=== PATIENT | female | born 1965 | race Asian ===

== ENCOUNTER → 2017-11-12 15:52 | Outpatient (CLI) | payer BC, SELFPAY ==
--- NOTE | 2017-11-12 16:00 | MM_ITS ---
. MM Dig screening mamm BI w/CAD CAD Screening ORDERING PHYSICIAN : Mor Pike MD PATIENT AGE: 52 years GENDER: Female COMPARISON: Previous mammograms: August 2015, October 2013. April 2011 INDICATION: Routine screening no hormones no new complaints noncontributory family history. TECHNIQUE: Standard CC and MLO images were obtained. R2 CAD reviewed. FINDINGS: Scattered moderate fibroglandular elements with moderately dense breast.. Slight progressive minimal fatty replacement over since since 2013 and particularly evident since 2010 No significant new findings no dominant mass nor suspicious calcifications. Bilateral follow-up in one year recommended. IMPRESSION: Negative Stable bilateral mammogram No new areas of significant concern in this breast of moderate density Follow up one year BI-RADS Category: 1 Negative RECOMMENDED FOLLOW-UP: 1YR - 1 YEAR FOLLOW-UP (A letter has been sent to the patient regarding results of the study.)
== END ==
PROVIDERS: Family Provider Family Medicine; PCP Family Medicine; Visit Provider Family Medicine
DX: Z12.31 Encounter for screening mammogram for malignant neoplasm of breast (principal)
CPT/HCPCS: 77067

== ENCOUNTER → 2018-09-11 12:44 | Outpatient (CLI) | payer BC, SELFPAY ==
[2018-09-11 20:44] LABS: Alanine Aminotransferase 87 U/L (12-78); Albumin Level 4.2 gm/dL (3.4-5.0); Albumin/Globulin Ratio 0.8 (1.1-1.8); Alkaline Phosphatase 140 U/L (46-116); Anion Gap 14.9 mEq/L (5-15); Aspartate Amino Transferase 48 U/L (15-37); Bilirubin,Total 0.4 mg/dL (0.2-1.0); Blood Urea Nitrogen 21 mg/dL (7-18); Calcium 10.1 mg/dL (8.5-10.1); Carbon Dioxide 28 mmol/L (21.0-32.0); Chloride 105 mmol/L (98-107); Chol/HDL Ratio 4.1 (1-3.5); Cholesterol 224 mg/dL (140-200); Creatinine,Serum 0.58 mg/dL (0.55-1.02); Estimated Glomerular Filt Rate 110 ml/min (>60); GFR (African American) 133 ML/MIN (>60); Glucose 118 mg/dL (74-106); HDL Cholesterol 55 mg/dL (29-89); LDL Cholesterol 141 mg/dL (0-130); Potassium 4.9 mmoL/L (3.5-5.1); Sodium 143 mmol/L (136-145); Thyroid Stimulating Hormone 2.19 uIU/ml (0.358-3.740); Total Protein,Serum 9.2 gm/dL (6.4-8.2); Triglycerides 142 mg/dL (30-200); VLDL Cholesterol 28 mg/dL (0-40)
== END ==
PROVIDERS: Visit Provider Physician Assistant
DX: I10 Essential (primary) hypertension (principal); Z13.29 Encounter for screening for other suspected endocrine disorder; Z13.220 Encounter for screening for lipoid disorders
CPT/HCPCS: 36415; 80053; 80061; 84443

== ENCOUNTER → 2018-09-26 12:12 | Outpatient (CLI) | payer BC, SELFPAY ==
[2018-09-26 13:33] LABS: Glucose,Fasting 113 mg/dL (60-105)
[2018-09-26 14:36] LABS: Hemoglobin A1C 6.4 % (0.0-7.0)
[2018-09-27 07:14] LABS: Hep A Ab, IgM Negative (Negative); Hepatitis B Core Antibody IgM Negative (Negative); Hepatitis B Surface Antigen Negative (Negative)
[2018-09-27 09:05] LABS: Hepatitis C Antibody <0.1 s/co ratio (0.0-0.9)
== END ==
PROVIDERS: Visit Provider Physician Assistant
DX: R94.5 Abnormal results of liver function studies (principal); R73.01 Impaired fasting glucose
CPT/HCPCS: 36415; 80074; 82947; 83036

== ENCOUNTER → 2018-10-01 08:13 | Outpatient (CLI) | payer BC, SELFPAY ==
--- NOTE | 2018-10-01 08:19 | US_ITS ---
US abdomen limited History:Elevated liver enzymes Ordering Physician:SOBIA Navas Patient Age: 53 years Comparison:None Findings: Pancreas:Unremarkable. No obvious mass or abnormal fluid collection. No ductal dilatation Liver:There is appropriate direction of blood flow within a normal size portal vein. No focal liver lesions or biliary dilatation evident. Right Kidney:Unremarkable. Normal size and echogenicity. No hydronephrosis Gallbladder:No gallstones, gallbladder wall thickening, pericholecystic fluid, or biliary dilatation. Impression:Negative gallbladder/right upper quadrant ultrasound
== END ==
PROVIDERS: PCP Family Medicine; Visit Provider Physician Assistant
DX: R94.5 Abnormal results of liver function studies (principal)
CPT/HCPCS: 76705

== ENCOUNTER → 2020-02-04 07:48 | Outpatient (CLI) | payer BC, SELFPAY ==
--- NOTE | 2020-02-04 07:55 | MM_ITS ---
PROCEDURE: MM DIG SCREENING MAMM BI W/CAD DIGITAL BREAST TOMOSYNTHESIS INCLUDED Patient Age:54Y CLINICAL INDICATION: Routine Screening No Hormones. No New Complaints. Noncontributory Family History. COMPARISON: [facility] DIG MAMM-SCREEN PAKO from 10/14/2013 [facility] DIG MAMM-SCREEN PAKO from 08/31/2015 [facility] MM Dig screening mamm BI w/CAD from 11/12/2017 TECHNIQUE: Standard CC and MLO images were obtained. R2 CAD reviewed. Bilateral digital breast tomosynthesis included. FINDINGS: Moderate density breast but no new areas of significant concern. Gradual progressive fatty changes when compared back to multiple studies over the past several years.. Cad Highlights No Areas Of Concern. Visual Review Of Images Shows No New Or Suspicious Dominant Mass But No Suspicious Calcifications Identified Bilateral follow-up 1 year recommended IMPRESSION: Stable bilateral mammogram. NO NEW AREAS OF CONCERN Annual bilateral follow-up recommended BI-RAD Category: 1 Negative FOLLOW-UP: 1YR 1 Year Follow-up (A letter has been sent to the patient regarding results of the study.) Dictated by: Jeffry Parson MD 02/10/2020 21:48 Electronically signed by Jeffry Parson MD in [place] 02/10/2020 21:48
== END ==
PROVIDERS: PCP Physician Assistant; Visit Provider Physician Assistant
DX: Z12.31 Encounter for screening mammogram for malignant neoplasm of breast (principal)
CPT/HCPCS: 77063; 77067

== ENCOUNTER → 2020-11-03 12:08 | Outpatient (CLI) | payer BC, SELFPAY ==
[2020-11-03 13:15] LABS: Alanine Aminotransferase 42 U/L (12-78); Albumin Level 4.8 g/dl (3.5-5.0); Albumin/Globulin Ratio 1.3 (1.1-1.8); Alkaline Phosphatase 108 U/L (38-126); Anion Gap 13.3 mEq/L (5-15); Aspartate Amino Transferase 36 U/L (14-36); Bilirubin,Total 0.4 mg/dl (0.2-1.3); Blood Urea Nitrogen 17 mg/dl (7-17); Calcium 9.9 mg/dl (8.4-10.2); Carbon Dioxide 25 mmol/L (22.0-30.0); Chloride 108 mmol/L (98-107); Cholesterol 181 mg/dl (140-200); Estimated Glomerular Filt Rate 105 ml/min (>60); GFR (African American) 127 ML/MIN (>60); Globulin 3.8 g/dL (1.3-3.2); Glucose 119 mg/dl (74-100); HDL Cholesterol 45 mg/dl (40-60); Potassium 4.3 mmoL/L (3.5-5.1); Sodium 142 mmol/L (136-145); Total Protein,Serum 8.6 g/dl (6.3-8.2); Triglycerides 209 mg/dl (30-150); VLDL Cholesterol 42 mg/dL (0-40)
[2020-11-03 13:26] LABS: Direct LDL Cholesterol 83.96 mg/dL (100-129)
[2020-11-03 14:50] LABS: Hemoglobin A1C 6.3 % (4.0-6.0)
== END ==
PROVIDERS: Visit Provider Physician Assistant
DX: I10 Essential (primary) hypertension (principal); R73.01 Impaired fasting glucose; E78.2 Mixed hyperlipidemia
CPT/HCPCS: 36415; 80053; 80061; 83036

== ENCOUNTER 2020-12-11 23:35 | Observation (INO) | payer BC, SELFPAY ==
--- NOTE | 2020-12-11 23:30 | ECG_ITS ---
APPROVED REPORT Exam: Resting ECG HR:80 bpm ECG Measurements Heart Rate 80 AXES RI 156 P 51 QRSd 76 QRS 31 QT 382 T 28 QTc 440 Conclusion Normal sinus rhythm Nonspecific T wave abnormality Abnormal ECG Electronically signed by : Naun Sanchez, 12/12/2020 07:09:25
[2020-12-11 23:41] VITALS: BP 130/90; PULSE 81; RESP 18; TEMP 36.9; O2SAT 100; BMI 27.6
--- NOTE | 2020-12-11 23:44 | XR_ITS ---
PROCEDURE INFORMATION: Exam: XR Chest Exam date and time: 12/11/2020 11:44 PM Age: 55 years old Clinical indication: Patient HX: Syncope, left arm numbness TECHNIQUE: Imaging protocol: XR of the chest. Views: 1 view. Total images: 1 COMPARISON: CR XR CHEST 2V 06/30/2019 4:44 PM FINDINGS: Lungs: Patchy nonspecific right lung base opacities favor atelectasis. Left perihilar metallic densities are nonspecific, not convincing of endobronchial valves and possibly external to the patient. Pleural spaces: Unremarkable. No pleural effusion. No pneumothorax. Heart/Mediastinum: Unremarkable. No cardiomegaly. Bones/joints: Unremarkable. IMPRESSION: 1. Patchy nonspecific right lung base opacities favor atelectasis. 2. Left perihilar metallic densities are nonspecific, not convincing of endobronchial valves and possibly external to the patient. Recommend clinical correlation.
--- NOTE | 2020-12-11 23:44 | CT_ITS ---
PROCEDURE INFORMATION: Exam: CT Head Without Contrast Exam date and time: 12/11/2020 11:44 PM Age: 55 years old Clinical indication: Numbness / parasthesia and syncope and collapse; Patient HX: Syncope with left arm numbness, headache; Additional info: Syncope and facial numbness TECHNIQUE: Imaging protocol: Computed tomography of the head without contrast. Total images: 83 Radiation optimization: All CT scans at this facility use at least one of these dose optimization techniques: automated exposure control; mA and/or kV adjustment per patient size (includes targeted exams where dose is matched to clinical indication); or iterative reconstruction. COMPARISON: No relevant prior studies available. FINDINGS: Brain: Normal. No hemorrhage. Unremarkable white matter. No mass effect. Cerebral ventricles: No ventriculomegaly. Paranasal sinuses: Visualized sinuses are unremarkable. No fluid levels. Mastoid air cells: Visualized mastoid air cells are well aerated. Bones/joints: Unremarkable. No acute fracture. Soft tissues: Unremarkable. IMPRESSION: No acute intracranial abnormality.
[2020-12-11 23:47] VITALS: BMI 27.6
[2020-12-11 23:56] LABS: Alanine Aminotransferase 68 U/L (12-78); Albumin Level 4.3 g/dl (3.5-5.0); Albumin/Globulin Ratio 1.1 (1.1-1.8); Alkaline Phosphatase 136 U/L (38-126); Anion Gap 6.6 mEq/L (5-15); Aspartate Amino Transferase 48 U/L (14-36); Bilirubin,Total 0.7 mg/dl (0.2-1.3); Blood Urea Nitrogen 16 mg/dl (7-17); Carbon Dioxide 37 mmol/L (22.0-30.0); Chloride 101 mmol/L (98-107); Creatinine Clearance Estimated 73 mL/min (50-200); Estimated Glomerular Filt Rate 58 ml/min (>60); GFR (African American) 70 ML/MIN (>60); Glucose 117 mg/dl (74-100); Potassium 3.6 mmoL/L (3.5-5.1); Sodium 141 mmol/L (136-145); Total Protein,Serum 8.3 g/dl (6.3-8.2)
[2020-12-12] VITALS (12 sets, daily range): BP systolic 129–154; BP diastolic 74–92; PULSE 78–114; RESP 16–19; TEMP 36.6–37.2; O2SAT 97–100; BMI 27.5
[2020-12-12 00:08] LABS: INR 0.82 (0.9-1.1); Prothrombin Time 9.8 seconds (10.1-12.5)
[2020-12-12 00:08] LABS: Troponin I 0.02 ng/ml (0.00-0.034)
[2020-12-12 00:11] LABS: Basophils # 0.1 K/mm3 (0-0.2); Basophils % 0.8 % (0.1-2.0); Eosinophils # 0.1 K/mm3 (0.0-0.4); Eosinophils % 1.2 % (0.1-12.0); Hematocrit 24.5 % (37.0-47.0); Hemoglobin 8.5 g/dL (12.2-16.2); Lymphocytes # 4.4 K/mm3 (0.7-4.5); Lymphocytes % 60.3 % (10-50); Mean Corpuscular HGB Conc 34.8 g/dL (31.8-35.4); Mean Corpuscular Volume 86.3 fl (81-99); Mean Platelet Volume 7.5 fl (7.4-10.4); Monocytes # 0.4 K/mm3 (0.1-1.0); Monocytes % 5.5 % (1.7-9.3); Neutrophils # 2.4 K/mm3 (1.8-7.8); Neutrophils % 32.2 % (37.0-80.0); Red Blood Count 2.83 M/mm3 (4.20-5.40); Red Cell Distribution Width 18.4 % (11.5-17.5); White Blood Count 7.3 K/mm3 (4.8-10.8)
--- NOTE | 2020-12-12 00:12 | HMH.EDSYNC ---
ED Disposition Clinical Impression: Thrombocytopenia Anemia Qualifiers: Anemia type: acquired or hereditary hemolytic anemia Disposition: Admitted As Inpatient Condition on Discharge: Good Time of Disposition: 02:10 - Critical Care Critical Care Time: No Attestation: On 12/11/20, the high probability of a clinically significant, sudden or life threatening deterioration of the following system(s) required my full and direct attention, intervention and personal management. The time I documented below is in addition to time spent performing reported procedures but includes the following listed in this critical care notation. Medical Decision Making - Medical Records Medical records reviewed: Yes: I reviewed the patient's medical records. - Zan Inquiry Pt receiving controlled substance: No Vital Signs: 12/11/20 23:41 12/12/20 00:09 12/12/20 00:31 Temperature 98.5 F Temperature Source Oral Pulse Rate 80 89 Pulse Rate [Right] 81 Respiratory Rate 18 16 16 Blood Pressure 133/92 H 148/90 H Blood Pressure [Right Arm] 130/90 Blood Pressure Mean 111 104 Blood Pressure Mean [Right Arm] 103 Blood Pressure Source [Right Arm] Manual Cuff/ Auscultation 02 Sat by Pulse Oximetry 100 100 100 Oxygen Delivery Method Room Air Room Air Room Air 12/12/20 01:01 12/12/20 01:15 12/12/20 01:30 Temperature Temperature Source Pulse Rate 88 92 H 89 Pulse Rate [Right] Respiratory Rate 16 Blood Pressure 142/74 H 154/82 H Blood Pressure [Right Arm] Blood Pressure Mean 96 94 Blood Pressure Mean [Right Arm] Blood Pressure Source [Right Arm] 02 Sat by Pulse Oximetry 100 99 100 Oxygen Delivery Method Room Air - Lab Data Lab Results 12/11/20 23:35: WBC 7.3, RBC 2.83 L, Hgb 8.5 L, Hct 24.5 L, MCV 86.3, MCH 30.0, MCHC 34.8, RDW 18.4 H, Plt Count 21 L*, MPV 7.5, Neut % (Auto) 32.2 L, Lymph % (Auto) 60.3 H, [place] % (Auto) 5.5, Eos % (Auto) 1.2, Baso % (Auto) 0.8, Neut # (Auto) 2.4, Lymph # (Auto) 4.4, [place] # (Auto) 0.4, Eos # (Auto) 0.1, Baso # (Auto) 0.1, Total Counted 100, Neutrophils % (Manual) 28 L, Lymphocytes % (Manual) 58 H, Atypical Lymphs % 6.0, Monocytes % (Manual) 5, Eosinophils % (Manual) 3, Platelet Estimate Marked decrease, Anisocytosis 1+, Microcytosis 1+, Spherocytes 1+, Helmet Cells 1+, Acanthocytes (Spur) 1+, Schistocytes 2+ 12/11/20 23:35: Sodium 141, Potassium 3.6, Chloride 101, Carbon Dioxide 37 H, Anion Gap 6.6, BUN 16, Creatinine 1.00, Estimated Creat Clear 73, Estimated GFR 58 L, Est GFR ( Amer) 70, Glucose 117 H, Calcium 9.0, Total Bilirubin 0.7, AST 48 H, ALT 68, Alkaline Phosphatase 136 H, Troponin I 0.02, Total Protein 8.3 H, Albumin 4.3, Globulin 4.0 H, Albumin/Globulin Ratio 1.1 12/11/20 23:35: Uric Acid 4.8, Lactate Dehydrogenase 757 H 12/11/20 23:50: PT 9.8 L, INR 0.82 L 12/11/20 23:50: D-Dimer 0.79 H 12/12/20 00:09: Chlamy pneumoniae PCR Not detected, Adenovirus (PCR) Not detected, B. pertussis DNA (PCR) Not detected, Coronavirus OC43 (PCR) Not detected, Coronavirus HKU1 (PCR) Not detected, Coronavirus 229E (PCR) Not detected, SARS-CoV-2 (PCR) Not detected, Coronavirus NL63 (PCR) Not detected, Human Metapneumovir PCR Not detected, Influenza A (H1) PCR Not detected, Influ A (H1N1/09) PCR Not detected, Influenza A (H3) PCR Not detected, Influenza Type A (PCR) Not detected, Influenza Type B (PCR) Not detected, M. pneumoniae (PCR) Not detected, Parainfluenza 1 (PCR) Not detected, Parainfluenza 2 (PCR) Not detected, Parainfluenza 3 (PCR) Not detected, Parainfluenza 4 (PCR) Not detected, RSV (PCR) Not detected, Entero/Rhino (PCR) Not detected Result diagrams: 12/11/20 23:35 12/11/20 23:35 Orders (Tests/Meds): ED MEDICATIONS Generic Name Dose Route Start Last Admin Trade Name Freq PRN Reason Stop Dose Admin Sodium Chloride 1,000 mls @ 999 mls/hr 12/11/20 23:45 12/11/20 23:51 Sod Chlor 0.9% 1000ml Bag IV 12/12/20 00:45 999 mls/hr .Q1H1M NELSON Adminis
--- NOTE | 2020-12-12 00:12 | PC.NURSE ---
I removed pt's yellow necklace with yellow cross and given to .
[2020-12-12 00:15] LABS: Adenovirus,PCR Not Detected (NotDetected); Bordetella Pertussis Not Detected (NotDetected); Chlamydophila Pneumoniae, PCR Not Detected (NotDetected); Coronavirus 19, PCR Not Detected (NotDetected); Coronavirus 229E Not Detected (NotDetected); Coronavirus NL63 Not Detected (NotDetected); Coronavirus OC43 Not Detected (NotDetected); Coronovirus HKU1,PCR Not Detected (NotDetected); Human Metapneumovirus Not Detected (NotDetected); Influenza A, PCR Not Detected (NotDetected); Influenza AH1, 2009 Not Detected (NotDetected); Influenza AH1, PCR Not Detected (NotDetected); Influenza AH3,PCR Not Detected (NotDetected); Influenza B, PCR Not Detected (NotDetected); Mycoplasma Pneumoniae, PCR Not Detected (NotDetected); Parainfluenza 1, PCR Not Detected (NotDetected); Parainfluenza 2, PCR Not Detected (NotDetected); Parainfluenza 3, PCR Not Detected (NotDetected); Parainfluenza 4, PCR Not Detected (NotDetected); Respiratory Syncytial Virus Not Detected (NotDetected); Rhinovirus/Enterovirus Not Detected (NotDetected)
[2020-12-12 00:18] LABS: D-Dimer 0.79 ug/mL (0.0-0.5)
[2020-12-12 00:27] LABS: MANUAL DIFFERENTIAL MANUAL DIFFERENTIAL (MANUAL DIFF); Platelet Count 21 K/mm3 (142-424)
--- NOTE | 2020-12-12 00:27 | PC.NURSE ---
Critical PLT count called from lab and results given to Dr Cosme.
[2020-12-12 00:30] LABS: Eosinophils % 3 % (0-3); Lymphocytes % 58 % (10-50); Monocytes % 5 % (2-9); Neutrophils % 28 % (42-76); Platelet Estimate Marked Decrease; Total Cells Counted 100
[2020-12-12 00:31] LABS: Anisocytosis 1+; Microcytosis 1+; Schistocytes 2+
[2020-12-12 00:32] LABS: Helmet Cells 1+; Spherocytes 1+
[2020-12-12 00:33] LABS: Acanthocytes 1+
[2020-12-12 01:08] LABS: Lactate Dehydrogenase 757 U/L (313-618); Uric Acid 4.8 mg/dl (2.5-6.2)
--- NOTE | 2020-12-12 01:20 | PC.NURSE ---
Dr Cosme at bedside
--- NOTE | 2020-12-12 01:26 | PC.NURSE ---
Dr Cosme speaking with Dr Cortez for admission
--- NOTE | 2020-12-12 01:34 | PC.NURSE ---
speaking to [facility] at this time.
[2020-12-12 02:18] LABS: Microscopic, Urine URINE MICROSCOPIC (MICROSCOPIC)
[2020-12-12 02:23] LABS: Appearance,Urine SL CLOUDY (Clear); Bilirubin,Urine Negative (Negative); Blood, Urine 3+ (Negative); Color,Urine YELLOW (Yellow); Glucose,Urine (UA) Negative (Negative); Ketones,Urine Negative (Negative); Leukocyte Esterase,Urine Negative (Negative); Nitrate,Urine Negative (Negative); Protein,Urine 1+ (Negative); Specific Gravity, Urine 1.015 (1.005-1.030); Urobilinogen,Urine 0.2 EU/dl (0.2)
[2020-12-12 02:30] LABS: Bacteria,Urine 2+ /lpf; Squamous Epithelial Cell,Urine Occasional #/hpf (0-5)
--- NOTE | 2020-12-12 03:24 | PC.NURSE ---
patient up to floor via wheelchair.
[2020-12-12 03:50] LABS: Troponin I 0.03 ng/ml (0.00-0.034)
[2020-12-12 08:36] LABS: Troponin I 0.02 ng/ml (0.00-0.034)
--- NOTE | 2020-12-12 09:57 | HMH.HPDC ---
General - General Admission date:: 12/12/20 Discharge date: 12/12/20 *Admission Date: 12/12/20 *Chief complaint: Passed out *History of present illness: 55 year old female with a history of HTN and DM type 2, presented to [facility] ER last night after passing out at home. Patient reports she has had a new headache off and on for about 1 week. She had been using OTC pain relievers with minimal relief. Patient [id number] she woke up from a nap yesterday and had numbness in her left arm and over the left side of her face. Shortly thereafter she had a brief episode where she became unconscious. This episode lasted a few seconds. Upon awakening she was not confused and was able to speak clearly. Her states she did not have any seizure like activity and did not lose control of her bowels or bladder. Patient states she has never had a past similar episode. She has no sick contacts. [facility] History Medical History: Reports:: Cancer, Diabetes Mellitus Type 2 (BODERLINE TYPE 2), Hyperlipidemia, Hypertension Denies:: Diabetes Mellitus Type 1, Internal Pacemaker, MRSA, Seizures *Have you ever received a pneumonia vaccine?: No *Have you received a flu vaccine this season?: No Other Surgeries: Yes: Hysterectomy-Total Amputation: No Fractures: No - *Social History Last grade of school completed: High school graduate Smoking Status: Unknown if ever smoked Alcohol Intake: never *Occupational Status:: retired Housing: house Household Members: spouse *Travel in the last 8 weeks: None Family Hx:: Unable to obtain Review of Systems - Constitutional Reports fatigue, Denies chills, Denies fever(s) - Eyes Denies blurry vision - ENT Denies change in voice - *Cardiovascular Denies chest pain - *Respiratory Denies cough - *Gastrointestinal Denies abdominal pain - *Genitourinary Denies difficulty urinating - *Musculoskeletal Denies joint pain - Integumentary/Breasts Denies rash - *Neurologic Reports headache(s) - Hematologic/Lymphatic Denies easy bleeding Exam Vital signs and Labs for Last 24 Hours: Temp Pulse Resp BP Pulse Ox 98.2 F 114 H 17 140/86 99 12/12/20 08:00 12/12/20 08:00 12/12/20 08:00 12/12/20 08:00 12/12/20 08:00 Laboratory Results - last 24 hr 12/11/20 23:35: WBC 7.3, RBC 2.83 L, Hgb 8.5 L, Hct 24.5 L, MCV 86.3, MCH 30.0, MCHC 34.8, RDW 18.4 H, Plt Count 21 L*, MPV 7.5, Neut % (Auto) 32.2 L, Lymph % (Auto) 60.3 H, [place] % (Auto) 5.5, Eos % (Auto) 1.2, Baso % (Auto) 0.8, Neut # (Auto) 2.4, Lymph # (Auto) 4.4, [place] # (Auto) 0.4, Eos # (Auto) 0.1, Baso # (Auto) 0.1, Total Counted 100, Neutrophils % (Manual) 28 L, Lymphocytes % (Manual) 58 H, Atypical Lymphs % 6.0, Monocytes % (Manual) 5, Eosinophils % (Manual) 3, Platelet Estimate Marked decrease, Anisocytosis 1+, Microcytosis 1+, Spherocytes 1+, Helmet Cells 1+, Acanthocytes (Spur) 1+, Schistocytes 2+ 12/11/20 23:35: Sodium 141, Potassium 3.6, Chloride 101, Carbon Dioxide 37 H, Anion Gap 6.6, BUN 16, Creatinine 1.00, Estimated Creat Clear 73, Estimated GFR 58 L, Est GFR ( Amer) 70, Glucose 117 H, Calcium 9.0, Total Bilirubin 0.7, AST 48 H, ALT 68, Alkaline Phosphatase 136 H, Troponin I 0.02, Total Protein 8.3 H, Albumin 4.3, Globulin 4.0 H, Albumin/Globulin Ratio 1.1 12/11/20 23:35: Uric Acid 4.8, Lactate Dehydrogenase 757 H 12/11/20 23:50: PT 9.8 L, INR 0.82 L 12/11/20 23:50: D-Dimer 0.79 H 12/12/20 00:09: Chlamy pneumoniae PCR Not detected, Adenovirus (PCR) Not detected, B. pertussis DNA (PCR) Not detected, Coronavirus OC43 (PCR) Not detected, Coronavirus HKU1 (PCR) Not detected, Coronavirus 229E (PCR) Not detected, SARS-CoV-2 (PCR) Not detected, Coronavirus NL63 (PCR) Not detected, Human Metapneumovir PCR Not detected, Influenza A (H1) PCR Not detected, Influ A (H1N1/09) PCR Not detected, Influenza A (H3) PCR Not detected, Influenza Type A (PCR) Not detected, Influenza Type B (PCR) Not detected, M. pneumoniae (PCR) Not detected, Parainfluenza
--- NOTE | 2020-12-12 11:07 | CARE MANAGER ---
0900 contacted [facility] they stated patient is a priority, but they do not have bed availability. STEPHANIE Cherry
--- NOTE | 2020-12-12 11:16 | P.CONPHA_ITS ---
[facility] Pharmacy VTE Monitoring - Patient Demographics Admission date: 12/11/20 Report Date: 12/12/20 Time: 11:16 Allergies/Adverse Reactions: Patient Allergies No Known Allergies Allergy (Verified 06/30/19 15:22) Height: 1.6 m Weight: 70.534 kg Patient Problems: Current Active Problems Thrombocytopenia (Acute) Anemia (Acute) Syncope (Acute) Lymphocytosis (Acute) HTN (hypertension) (Acute) Diabetes type 2, controlled (Acute) Elevated LDH (Acute) - VTE Risk Labs: VTE Related Lab Results Hgb 8.5 g/dL (12.2-16.2) L 12/11/20 23:35 Hct 24.5 % (37.0-47.0) L 12/11/20 23:35 Plt Count 21 K/mm3 (142-424) L* 12/11/20 23:35 PT 9.8 seconds (10.1-12.5) L 12/11/20 23:50 INR 0.82 (0.9-1.1) L 12/11/20 23:50 BUN 16 mg/dl (7-17) 12/11/20 23:35 Creatinine 1.00 mg/dl (0.52-1.04) 12/11/20 23:35 Estimated Creat Clear 73 mL/min (50-200) 12/11/20 23:35 - Prophylaxis VTE Prophylaxis Ordered?: Yes Types of VTE Prophylaxis: IPCS Thigh High Location of Applied Device: Bilateral Lower Extremeties
[2020-12-12 11:38] LABS: POC Glucose,Bedside 181 (70-110)
--- NOTE | 2020-12-12 12:29 | PC.NURSE ---
Spoke with [facility] at 1225 and she stated there was no bed still. Then nurse Rena called back and state still no bed and was updated on pt's status at this time.
--- NOTE | 2020-12-12 17:09 | PC.NURSE ---
Called and gave report to Litzy at at 1700. Also verified with Dr. Encarnacion song writer that pt could be transferred via private vehicle and he is aware that pt has been sinus tach on tele. No other c/o's except needing to have a bm. Ducolax given per mar and pt states she has went a little bit since it was given. Dr. Ferrera is the attending md, she is going to [facility], 11th floor, tower 2, room 225.
--- NOTE | 2020-12-12 18:49 | PC.NURSE ---
Pt left for transfer to at 1820.
[2020-12-12 20:53] LABS: POC Glucose,Bedside 154 (70-110)
[2020-12-12 20:53] LABS: POC Glucose,Bedside 137 (70-110)
[2020-12-14 01:45] LABS: Peripheral Smear Review Scanned Result
[2020-12-26 11:58] LABS: POC Glucose,Bedside 119 (70-110)
== END 2020-12-12 18:20 | disposition short-term general hospital (02) ==
LOC: ER 23:40 → 2ND 12-12 01:59
PROVIDERS: Admitting Provider Family Medicine; Emergency Provider Student in an Organized Health Care Education/Training Program; PCP Physician Assistant; Visit Provider Family Medicine
DX: D64.9 Anemia, unspecified (principal); I10 Essential (primary) hypertension; E11.9 Type 2 diabetes mellitus without complications; R55 Syncope and collapse; D72.820 Lymphocytosis (symptomatic); R74.02 Elevation of levels of lactic acid dehydrogenase [LDH]; C95.90 Leukemia, unspecified not having achieved remission; Z79.84 Long term (current) use of oral hypoglycemic drugs
CPT/HCPCS: 36415; 70450; 71045; 80053; 81001; 82962; 83615; 84484; 84550; 85007; 85025; 85378; 85610; 87086; 87581; 87633; 87798; 93005; 96365; 96375; 99284; G0378

== ENCOUNTER 2020-12-27 12:31 | Emergency (ER) | payer BC, SELFPAY ==
--- NOTE | 2020-12-27 12:23 | ECG_ITS ---
APPROVED REPORT Exam: Resting ECG HR:83 bpm ECG Measurements Heart Rate 83 AXES SD 142 P 59 QRSd 74 QRS 22 QT 324 T 24 QTc 380 Conclusion Normal sinus rhythm Normal ECG Electronically signed by : Naun Sanchez, 12/28/2020 17:50:28
[2020-12-27 12:31] VITALS: BP 122/75; PULSE 82; RESP 16; TEMP 37.2; O2SAT 98; BMI 26.7
--- NOTE | 2020-12-27 12:39 | XR_ITS ---
PROCEDURE: XR CHEST PORTABLE CLINICAL HISTORY: chest pain COMPARISON: CR XR CHEST 2V from 06/30/[address] ANGIO CHEST from 06/30/2019 CR XR CHEST PORTABLE from 12/12/2020 FINDINGS: The cardiomediastinal silhouette and pulmonary vascularity are within normal limits. Mild right basilar scar versus atelectasis. Lungs otherwise clear. No acute bony abnormalities. IMPRESSION: Mild right basilar scar versus atelectasis. No focal infiltrate or overt failure. Dictated by: Wilber Fink MD 12/27/2020 13:31 Wilber Fink MD in [place] 12/27/2020 13:31
--- NOTE | 2020-12-27 12:57 | CT_ITS ---
PROCEDURE: CT ANGIO CHEST CLINCIAL INDICATION: chest pain, TTP, eval for PE COMPARISON: CT CT ANGIO CHEST from 06/30/2019 TECHNIQUE: IV Contrast: 70ML Isovue 370 Axial images obtained with sagittal and coronal reformats. All CT scans at the facility use one or more dose reduction, viz: automated exposure control, ma/kV adjustment per patient size (including targeted exams where dose is matched to indication, i.e. head), or iterative reconstruction technique. FINDINGS: No contrast filling defects in the pulmonary arteries to suggest pulmonary embolism. Heart is not enlarged. No pericardial effusion or thickening. Thoracic aorta is normal without dissection or aneurysm. There is some mild scar versus atelectasis in the lung bases. Small calcified granuloma in the left base again noted. No ground-glass opacities in the lungs or pulmonary consolidation. No pleural effusion or pneumothorax. Great vessels off the aortic arch are normal. There are a few small calcified hilar lymph nodes. No discrete pulmonary nodules are noted. Images of the upper abdomen show mild diffuse fatty infiltration of the visualized liver. Gallbladder is partially contracted. No adrenal mass. Moderate diffuse degenerative changes of the thoracic spine are noted. No acute bony abnormality. IMPRESSION: No CT evidence of pulmonary embolism. Some mild scar versus atelectasis in the lung bases. Mild diffuse fatty infiltration of the visualized liver. No adrenal mass. Dictated by: Wilber Fink MD 12/27/2020 13:53 Wilber Fink MD in [place] 12/27/2020 13:53
--- NOTE | 2020-12-27 12:59 | HMH.EDCP ---
ED Disposition Clinical Impression: Atypical chest pain Disposition: Home, Self-Care Condition on Discharge: Good Instructions: DI for Atypical Chest Pain Referrals: Vernon Encarnacion MD [Primary Care Provider] - Trent Castano MD [Staff Physician] - 7-14 days - Critical Care Critical Care Time: No Attestation: On 12/27/20, the high probability of a clinically significant, sudden or life threatening deterioration of the following system(s) required my full and direct attention, intervention and personal management. The time I documented below is in addition to time spent performing reported procedures but includes the following listed in this critical care notation. Medical Decision Making - Medical Records Medical records reviewed: Yes: I reviewed the patient's medical records. - Zan Inquiry Pt receiving controlled substance: No Vital Signs: 12/27/20 12:31 Temperature 98.9 F Temperature Source Oral Pulse Rate [Radial] 82 Respiratory Rate 16 Blood Pressure [Right Arm] 122/75 Blood Pressure Mean [Right Arm] 90 Blood Pressure Position [Right Arm] Sitting 02 Sat by Pulse Oximetry 98 Oxygen Delivery Method Room Air - Lab Data Lab results reviewed: Yes: I reviewed the patient's lab results. Lab Results 12/27/20 12:52: WBC 19.4 H, RBC 3.43 L, Hgb 10.6 L, Hct 32.5 L, MCV 94.8, MCH 30.9, MCHC 32.6, RDW 16.9, Plt Count 300, MPV 8.6, Neut % (Auto) 90.4 H, Lymph % (Auto) 8.1 L, [place] % (Auto) 1.3 L, Eos % (Auto) 0.1, Baso % (Auto) 0.1, Neut # (Auto) 17.5 H, Lymph # (Auto) 1.6, [place] # (Auto) 0.3, Eos # (Auto) 0.0, Baso # (Auto) 0.0, Total Counted 100, Neutrophils % (Manual) 87 H, Lymphocytes % (Manual) 12, Monocytes % (Manual) 1 L, Platelet Estimate Normal, RBC Morphology Normal 12/27/20 12:52: Sodium 133 L, Potassium 4.6, Chloride 100, Carbon Dioxide 24, Anion Gap 13.6, BUN 28 H, Creatinine 0.70, Estimated Creat Clear 100, Estimated GFR 88, Est GFR ( Amer) 106, Glucose 357 H, Calcium 9.3, Troponin I < 0.01 12/27/20 13:20: PT 10.8 12/27/20 16:15: Troponin I < 0.01 Result diagrams: 12/27/20 12:52 12/27/20 12:52 Orders (Tests/Meds): ED MEDICATIONS Generic Name Dose Route Start Last Admin Trade Name Freq PRN Reason Stop Dose Admin Sodium Chloride 10 ml 12/27/20 13:32 12/27/20 13:34 Sodium Chloride 0.9% 10ml Syr (Rad Only) IV 01/26/21 13:31 10 ml NEEDED PRN Administration Maintain IV Site Discontinued Medications Generic Name Dose Route Start Last Admin Trade Name Freq PRN Reason Stop Dose Admin Sodium Chloride 500 mls @ 999 mls/hr 12/27/20 13:30 12/27/20 13:50 Sod Chlor 0.9% 1000ml Bag IV 12/27/20 14:00 999 mls/hr .Q31M NELSON Administration Iopamidol 70 ml 12/27/20 13:32 12/27/20 13:34 Iopamidol-370 (76%);100ml Bottle IV 12/27/20 13:33 70 ml ONCE ONE Administration Sodium Chloride 40 ml 12/27/20 13:32 12/27/20 13:34 0.9 % Sodium Chloride 50 Ml Vial IV 12/27/20 13:33 40 ml ONCE ONE Administration ORDERS Category Date Time Status PT/PTT Stat Lab 12/27/20 13:20 Results Troponin I Q3H Lab 12/27/20 18:45 Ordered Medical Decision Narrative: Patient presents with episode of chest pain that is since resolved. Hemodynamically stable. Normal physical exam. Given recent diagnosis of TTP and recent hospitalization, differential includes ACS versus PE versus musculoskeletal versus pneumonia. Labs with normal platelet count and otherwise unremarkable. Mild elevated BUN consistent with dehydration. CT PE negative for blood clot, pneumonia or cardiomegaly. Second troponin negative. Patient asymptomatic on reassessment hemodynamically stable. Unclear etiology at this time, may be musculoskeletal. Given cardiology referral. Return indications reviewed. Chest Pain HPI - General Chief Complaint: Chest Pain Stated Complaint: chest pain Time Seen by Provider: 12/27/20 12:59 Mode of Arrival: Ambulatory Limitations: No Limit
[2020-12-27 13:10] LABS: Basophils % 0.1 % (0.1-2.0); Eosinophils % 0.1 % (0.1-12.0); Hematocrit 32.5 % (37.0-47.0); Hemoglobin 10.6 g/dL (12.2-16.2); Lymphocytes # 1.6 K/mm3 (0.7-4.5); Lymphocytes % 8.1 % (10-50); Mean Corpuscular HGB Conc 32.6 g/dL (31.8-35.4); Mean Corpuscular Hemoglobin 30.9 pg (27.0-31.2); Mean Corpuscular Volume 94.8 fl (81-99); Mean Platelet Volume 8.6 fl (7.4-10.4); Monocytes # 0.3 K/mm3 (0.1-1.0); Monocytes % 1.3 % (1.7-9.3); Neutrophils # 17.5 K/mm3 (1.8-7.8); Neutrophils % 90.4 % (37.0-80.0); Platelet Count 300 K/mm3 (142-424); Red Blood Count 3.43 M/mm3 (4.20-5.40); Red Cell Distribution Width 16.9 % (11.5-17.5); White Blood Count 19.4 K/mm3 (4.8-10.8)
[2020-12-27 13:15] LABS: Anion Gap 13.6 mEq/L (5-15); Blood Urea Nitrogen 28 mg/dl (7-17); Calcium 9.3 mg/dl (8.4-10.2); Carbon Dioxide 24 mmol/L (22.0-30.0); Chloride 100 mmol/L (98-107); Creatinine Clearance Estimated 100 mL/min (50-200); Estimated Glomerular Filt Rate 88 ml/min (>60); GFR (African American) 106 ML/MIN (>60); Glucose 357 mg/dl (74-100); Potassium 4.6 mmoL/L (3.5-5.1); Sodium 133 mmol/L (136-145)
[2020-12-27 13:18] LABS: MANUAL DIFFERENTIAL MANUAL DIFFERENTIAL (MANUAL DIFF)
[2020-12-27 13:38] LABS: Troponin I < 0.01 ng/ml (0.00-0.034)
[2020-12-27 13:39] LABS: Prothrombin Time 10.8 seconds (10.1-12.5)
[2020-12-27 13:39] LABS: Lymphocytes % 12 % (10-50); Monocytes % 1 % (2-9); Neutrophils % 87 % (42-76); Total Cells Counted 100
[2020-12-27 13:40] LABS: Platelet Estimate Normal; RBC Morphology Normal
--- NOTE | 2020-12-27 14:38 | PC.NURSE ---
pt up to restroom
[2020-12-27 16:45] LABS: Troponin I < 0.01 ng/ml (0.00-0.034)
[2020-12-27 16:56] VITALS: BP 122/74; PULSE 78; RESP 16; TEMP 36.6; O2SAT 98
[2020-12-27 18:56] LABS: INR 0.91 (0.9-1.1)
== END 2020-12-27 16:58 | disposition home or self-care (01) ==
PROVIDERS: Emergency Provider Emergency Medicine; PCP Family Medicine
DX: R07.89 Other chest pain (principal); E11.9 Type 2 diabetes mellitus without complications; E78.5 Hyperlipidemia, unspecified; I10 Essential (primary) hypertension; D69.6 Thrombocytopenia, unspecified; Z79.899 Other long term (current) drug therapy
CPT/HCPCS: 71045; 71275; 80048; 84484; 85007; 85025; 85610; 85730; 93005; 96365; 99282; Q9967

== ENCOUNTER → 2021-10-13 07:55 | Outpatient (CLI) | payer BC, SELFPAY ==
--- NOTE | 2021-10-13 08:15 | MM_ITS ---
PROCEDURE INFORMATION: Exam: MG Bilateral Screening 3D Mammography Exam date and time: 10/13/2021 8:15 AM Age: 56 years old Clinical indication: Screening examination. TECHNIQUE: Imaging protocol: Bilateral Screening tomosynthesis and 2D mammography including computer-aided detection (CAD) when performed. COMPARISON: 1. MG MM DIG SCREENING MAMM BI W/CAD 02/04/2020 8:03 AM 2. MG [facility] MM Dig screening mamm BI w/CAD 11/12/2017 4:02 PM FINDINGS: MAMMOGRAPHY: Breast composition: The breast tissue is composed of scattered areas of fibroglandular density. Mass: None. Architectural distortion: None. Calcifications: No suspicious calcifications. Asymmetric density: None. Skin thickening: None. Axillary adenopathy: None. IMPRESSION: No mammographic evidence of malignancy. Annual screening is recommended unless otherwise clinically indicated. ASSESSMENT: BI-RADS Category 1: Negative
== END ==
PROVIDERS: PCP Family Medicine; Visit Provider Physician Assistant
DX: Z12.31 Encounter for screening mammogram for malignant neoplasm of breast (principal)
CPT/HCPCS: 77063; 77067

== ENCOUNTER → 2022-12-24 09:59 | Outpatient (CLI) | payer BC, SELFPAY ==
--- NOTE | 2022-12-24 10:04 | MM_ITS ---
PROCEDURE INFORMATION: Exam: MG Bilateral Screening 3D Mammography Exam date and time: 12/24/2022 9:58 AM Age: 57 years old Clinical indication: Screening examination TECHNIQUE: Imaging protocol: Bilateral Screening tomosynthesis and 2D mammography including computer-aided detection (CAD) when performed. COMPARISON: 1. MG MM DIG SCREENING MAMM BI W/CAD 10/13/2021 8:15 AM 2. MG MM DIG SCREENING MAMM BI W/CAD 02/04/2020 8:03 AM FINDINGS: MAMMOGRAPHY: Breast composition: There are scattered areas of fibroglandular density. Mass: None. Architectural distortion: None. Calcifications: No suspicious calcifications. Asymmetric density: None. Skin thickening: None. Axillary adenopathy: None. IMPRESSION: No mammographic evidence of malignancy. Annual screening is recommended unless otherwise clinically indicated. ASSESSMENT: BI-RADS Category 1: Negative
== END ==
PROVIDERS: PCP Physician Assistant; Visit Provider Physician Assistant
DX: Z12.31 Encounter for screening mammogram for malignant neoplasm of breast (principal)
CPT/HCPCS: 77063; 77067

== ENCOUNTER 2023-12-27 14:43 | Outpatient (CLI) | payer BC, SELFPAY ==
--- NOTE | 2023-12-27 14:51 | MM_ITS ---
PROCEDURE INFORMATION: Exam: MG Bilateral Screening 3D Mammography Exam date and time: 12/27/2023 2:44 PM Age: 58 years old Clinical indication: Screening examination TECHNIQUE: Imaging protocol: Bilateral Screening tomosynthesis and 2D mammography including computer-aided detection (CAD) when performed. COMPARISON: 1. MG MM DIG SCREENING MAMM BI W/CAD 12/24/2022 9:58 AM 2. MG MM DIG SCREENING MAMM BI W/CAD 10/13/2021 8:15 AM 3. MG MM DIG SCREENING MAMM BI W/CAD 02/04/2020 8:03 AM FINDINGS: MAMMOGRAPHY: Breast composition: There are scattered areas of fibroglandular density. Mass: No suspicious masses. Architectural distortion: No suspicious distortion. Calcifications: No suspicious calcifications. Asymmetric density: None. Skin thickening: None. Axillary adenopathy: None. IMPRESSION: No mammographic evidence of malignancy. Annual screening is recommended unless otherwise clinically indicated. ASSESSMENT: BI-RADS Category 1: Negative
== END 2023-12-27 23:59 | disposition home or self-care (01) ==
LOC: RAD 14:45
PROVIDERS: PCP Physician Assistant; Visit Provider Physician Assistant
DX: Z12.31 Encounter for screening mammogram for malignant neoplasm of breast (principal)
CPT/HCPCS: 77063; 77067

== ENCOUNTER 2025-01-11 16:02 | Outpatient (CLI) | payer BC, SELFPAY ==
--- OUTSIDE RECORDS SUMMARY | 2025-01-11 16:05 | XMS_ITS | Clinical Summary ---
Author Organization Healthcare Address [address] [place] [address] Care Team Providers Care Sales Associate Fishing Name Role Phone Peg Zapata Primary Care Provider [phone] Allergies No known active allergies Medications metFORMIN (Glucophage) 500 MG tablet Take 500 mg by mouth 1 (one) time each day in the morning. Active amLODIPine (Norvasc) 5 MG tablet Take 5 mg by mouth 1 (one) time each day. Active cholecalciferol (Vitamin D3) 25 MCG (1000 UT) tablet Take 1,000 Units by mouth 1 (one) time each day. Active Psyllium (Metamucil) 48.57 % powder Take by mouth 1 (one) time each day. Active Multiple Vitamin (multivitamin) tablet Take 1 tablet by mouth 1 (one) time each day. Active cetirizine (ZyrTEC) 10 MG tablet Take 10 mg by mouth 1 (one) time each day. Active zinc gluconate 50 MG tablet Take 50 mg by mouth 1 (one) time each day. Take half a tablet once daily. Active coenzyme Q-10 200 MG capsule Take 200 mg by mouth 1 (one) time each day. 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 Overview (01/10/2021): Ms Frye is a 55yoF with a pmhx of T2DM and HTN who presented to after she experienced headache, left arm and left facial numbness with the syncope like episode on 12/11 On arrival she was found to be thrombocytopenic with labs consistent with hemolysis She has sites were seen on peripheral smear and she was transferred to [facility] for further evaluation by Hematology and Nephrology with concern for TTP Her syncopal event was described as lightheadedness At no point did she lose consciousness or hit her head Of note she did feel diaphoretic following the event On arrival to [facility] her Hgb low at 8 and Plts low at 21 WBC 7 with lymphoctye predominance EKG shows sinus tach without ST eleveation CXR read shows atelectasis and CT head read without acute abnormalities Pulmonary ICU was consulted for admission and Trialysis catheter placement for plasmapheresis Initial labs were reviewed and revealed a platelet count of 17 with schistocytes on peripheral smear Labs further support hemolysis with an undetectable haptoglobin and elevated LDH of 1099 Patient diagnosed with MAHA/TTP started on 1mg/kg daily of systemic steroids and Monroe catheter placed and started on PLEX. Extended w/u sent and no etiology was noted (ehrlichia/anaplasma, parvo negative) and patient's platelet count stabilized. She was than monitored inpatient and remained stable after which she was discharged to home. On discharge she is advised follow up with hematology on 01/02 and has labwork scheduled for 12/28 (CBC, LDH and Hapto). Diet control and blood glucose monitoring is advised as she is discharged with prednisone 70mg daily until she sees hematology in the clinic (with plans for tapering after). Assessment & Plan (02/23/2021 12:08 PM EDT): Ms. Frye is doing well at this visit. She denies any bruising or bleeding, headaches or dizziness. Her platelet count today is 163.. She has completed the oral steroid therapy.. Ferritin and haptoglobin are still pending. I will plan on seeing her in one month again and if still doing well we will move to 3 month evaluation. Discussed with patient that she should be evaluated immediately if she notices any bruising or bleeding. Patient and her verbalized understanding RTC in one month for evaluation Assessment & Plan (01/24/2021 4:16 PM EDT): Ms. Frye is doing well at this visit. She denies any bruising or bleeding. She has been taking the prednisone 50mg every day. Labs are stable today with platelet count of 218; ferritan has gone down. We will decrease the Prednisone to 30mg per day for one week; then to 10 for 7 days Discussed with patient that she should be evaluated immediately if she notices any bruising or bleeding. Patient and her verbalized understanding RTC in one month for evaluation Assessment & Plan (01/10/2021 1:47 PM EDT): Ms. Frye is doing well at this visit. She denies any bruising or bleeding. She has been taking the prednisone 70mg every day. Labs today concerning for platelet count of 255 which is still a good number but is decreased from the previous week of 320. Her WBC is also elevated today for an unknown reason. Patient denies any s/s of an infection. We will decrease the Prednisone to 50mg per day. Patient will return to have labs drawn on Tuesdays until I see her again in January to make sure that platelet count is not trending down. Discussed with patient that she should be evaluated immediately if she notices any bruising or bleeding. 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 Weakness 12/16/2020 Pre-diabetes Social History Tobacco Use Types Packs/Day Years Used Date Smoking Tobacco: Never Smokeless Tobacco: Never Alcohol Use Standard Drinks/Week Comments Not Currently 0 (1 standard drink = 0.6 oz pur e alcohol) PHQ-2 Answer Date Recorded Patient Health Questionnaire-2 Score 0 01/23/2021 Comments Unknown Sex and Gender Information Value Date Recorded Sex Assigned at Female 12/19/2020 6:03 AM EDT Legal Sex Female 9:45 PM EDT Gender Identity Female 12/19/2020 6:03 AM EDT Sexual Orientation Not on file Last Filed Vital Signs Vital Sign Reading Time Taken Comments Blood Pressure 138/84 06/26/2021 2:49 PM EST Pulse 80 06/26/2021 2:49 PM EST Temperature 36.1 C (97 F) 06/26/2021 2:49 PM EST Respiratory Rate 16 06/26/2021 2:49 PM EST Oxygen Saturation 100% 06/26/2021 2:49 PM EST Inhaled Oxygen Concentration - - Weight 72.1 kg (158 lb 15.2 oz) 06/26/2021 2:49 PM EST Height 153 cm (5' 0.24 ) 06/26/2021 2:49 PM EST Body Mass Index 30.8 06/26/2021 2:49 PM EST Plan of Treatment Health Maintenance Due Date Last Done Comments [facility]-Depression Screening 1967 [facility]-/Child/Adol SDOH Screenings 1967 [facility]- SDOH Screenings 1985 [facility]-Adult SDOH Screenings 1985 [facility]-Hepatitis B Vaccines (1 of 3 - 19+ 3-dose series) 1986 [facility]-Pap Smear 1988 [facility]-DTaP,Tdap,and Td Vaccine s (1 - Tdap) 10/07/1996 10/06/1996 [facility]-Cervical Cancer Screening 1997 [facility]-HPV/Cotest 1997 CT Colonography 2012 Colonoscopy 2012 FIT-DNA 2012 FIT 2012 FOBT 2012 Sigmoidoscopy 2012 [facility]-Colorectal Cancer Screening 2012 [facility]-Pneumococcal Vaccine: 50 + Years (1 of 1 - PCV) 2017 [facility]-Zoster Vaccines (1 of 2) 2017 [id number] Vaccine ( - 20 24-25 season) 2024 [facility]-Influenza Vaccine ([place] n Ended) 2025 [facility]-Diabetes: Hemoglobin A1C Discontinued 12/12/2020 HPV Vaccines Aged Out No longer eligi ble based on patient's age to complete this topic [facility]-HIB Vaccines Aged Out No longer e ligible based on patient's age to complete this topic [facility]-Hepatitis A Vaccines Aged Out No longer eligible based on patient's age to complete this topic [facility]-IPV Vaccines Aged Out No longer e ligible based on patient's age to complete this topic [facility]-Rotavirus Vaccines Aged Out No lo nger eligible based on patient's age to complete this topic Procedures Procedure Name Priority Date/Time Associated Diagnosis Comments HEMOGLOBIN A1C Routine 12/12/2020 11:04 PM EDT from Last 3 Months or Most Recently Relevant to Health Maintenance Results * Hemoglobin A1c (12/12/2020 11:04 PM EDT) Hemoglobin A1c 5.7 4.7 - 6.0 % [facility] Comment: Glycohemoglobin Reference Range, 0 years and up: 4.7 to 6.0% . HA1C Interpretive Data: Diagnosis of Diabetes: Diabetic > or = 6.5% Pre-diabetic 5.7 to 6.4% Non-diabetic < or = 5.6% . Glycemic Targets for Type I and Type II Diabetics: Non- Adults <7.0% Adults <6.0% Children and Adolescents <7.5% . Source: [place] Diabetes Association. Standards of medical care in diabetes, 2017. Diabetes Care.2017:40 (suppl 1):S1-S135. . HbA1c assay performed by an ion-exchange chromatography method that is certified traceable to the DCCT. 12/12/2020 11:0 4 PM EDT 12/12/2020 11:21 PM EDT us Marcelle Sheppard MD LAB BLOOD ORDERABLES Final R esult [facility]QUEST from Last 3 Months or Most Recently Relevant to Health Maintenance Insurance ANTH Advance Directives * Full Code (Latest Code Status on File) Date Activated Date Inactivated Comments 12/16/2020 4:25 PM 12/24/2020 1:49 PM Care Teams Sales Associate Fishing Relationship Specialty Start Date End Date Peg Zapata PA [address] [place] [id number] PCP - General 11/25/20
--- NOTE | 2025-01-11 16:09 | MM_ITS ---
PROCEDURE INFORMATION: Exam: MG Bilateral Screening 3D Mammography Exam date and time: 01/11/2025 4:23 PM Age: 59 years old Clinical indication: Screening examination TECHNIQUE: Imaging protocol: Bilateral Screening tomosynthesis and 2D mammography including computer-aided detection (CAD) when performed. COMPARISON: 1. MG MM DIG SCREENING MAMM BI W/CAD 12/27/2023 2:44 PM 2. MG MM DIG SCREENING MAMM BI W/CAD 12/24/2022 9:58 AM FINDINGS: MAMMOGRAPHY: Breast composition: There are scattered areas of fibroglandular density. Mass: No suspicious masses. Architectural distortion: None. Calcifications: No suspicious calcifications. Asymmetric density: None. Skin thickening: None. Axillary adenopathy: None. IMPRESSION: No mammographic evidence of malignancy. Annual screening is recommended unless otherwise clinically indicated. ASSESSMENT: BI-RADS Category 1: Negative.
== END 2025-01-11 23:59 | disposition home or self-care (01) ==
LOC: RAD 16:04
PROVIDERS: PCP Physician Assistant; Visit Provider Family Medicine
DX: Z12.31 Encounter for screening mammogram for malignant neoplasm of breast (principal); R92.323 Mammographic fibroglandular density, bilateral breasts
CPT/HCPCS: 77063; 77067